=== PATIENT | female | born 1960 | race Caucasian/White ===

== ENCOUNTER 2016-10-07 07:27 | Emergency (ER) | payer OTHER ==
[2016-10-07 07:48] VITALS: BP 124/79
--- NOTE | 2016-10-07 07:53 | UC ---
Respiratory Complaint HPI - HPI Summary HPI Summary: 56 yo female with cough x 3-4 days productive at times wheezing COBOS NO CP low energy sinsus pressure and some nasal congestion no ST - History of Current Complaint Chief Complaint: UCGeneralIllness Stated Complaint: UPPER RESPIRATORY Time Seen by Provider: 10/07/16 07:40 Hx Obtained From: Patient Hx Last Menstrual Period: 2004 Onset/Duration: Gradual Onset, Lasting Days Timing: Constant Severity Initially: Mild Severity Currently: Moderate Pain Intensity: 2 Pain Scale Used: 0-10 Numeric Character: Cough: Productive - art times Aggravating Factors: Nothing Alleviating Factors: Nothing Associated Signs And Symptoms: Positive: Chills, Wheezing, Nasal Congestion - Allergies/Home Medications Allergies/Adverse Reactions: Allergies Allergy/AdvReac Type Severity Reaction Status Date / Time No Known Allergies Allergy Verified 07/27/16 09:09 PMH/Surg Hx/FS Hx/Imm Hx Previously Healthy: Yes Endocrine History Of: Reports: Thyroid Disease Denies: Diabetes Cardiovascular History Of: Denies: Cardiac Disorders, Hypertension, Pacemaker/ICD, Congestive Heart Failure, Atrial Fibrillation Respiratory History Of: Denies: COPD, Asthma, Bronchitis GI/ History Of: Reports: Renal Disease - cyst Denies: Ulcer Cancer History Of: Denies: Breast Cancer - Surgical History Surgical History: Yes Surgery Procedure, Year, and Place: thyroidectomy 2010, Partial Hysterectomy- 2004, Appendix 1981 - Family History Known Family History: Positive: Respiratory Disease - no hx asthma or COPD Negative: Cardiac Disease, Hypertension, Diabetes - Social History Alcohol Use: Occasionally Alcohol Amount: several beers Substance Use Type: None Smoking Status (MU): Never Smoked Tobacco Review of Systems Constitutional: Fatigue Skin: Negative Eyes: Negative ENT: Nasal Discharge Respiratory: Shortness Of Breath - with exertion, Cough Cardiovascular: Negative Gastrointestinal: Negative Genitourinary: Negative Motor: Negative Neurovascular: Negative Musculoskeletal: Negative Neurological: Negative Psychological: Negative All Other Systems Reviewed And Are Negative: Yes Physical Exam Triage Information Reviewed: Yes Appearance: Well-Appearing, No Pain Distress, Well-Nourished Vital Signs: Initial Vital Signs Temp 98.1 F 10/07/16 07:33 Pulse 71 10/07/16 07:33 Resp 16 10/07/16 07:33 BP 124/79 10/07/16 07:33 Pulse Ox 99 10/07/16 07:33 Vital Signs Reviewed: Yes Eyes: Positive: Conjunctiva Clear ENT: Positive: Hearing grossly normal, Pharyngeal erythema, Nasal congestion, Nasal drainage, TMs normal. Negative: Tonsillar exudate, Trismus, Muffled/ hoarse voice Dental: Negative: Dental Fracture @, Abscess @ Neck: Positive: Supple, Nontender, Other: - surgical scar Respiratory: Positive: No respiratory distress, No accessory muscle use, Wheezing - with forced expiration Cardiovascular: Positive: RRR, No Murmur, Pulses Normal Musculoskeletal: Positive: ROM Intact, No Edema Neurological: Positive: Alert, Muscle Tone Normal. Negative: Fatigued Psychological Exam: Normal Skin Exam: Normal UC Diagnostic Evaluation - Laboratory O2 Sat by Pulse Oximetry: 99 Respiratory Course/Dx - Differential Dx/Diagnosis Provider Diagnoses: acute bronchitis with bronchospasm Discharge - Discharge Plan Condition: Stable Disposition: HOME Prescriptions: Amoxicillin (*) 875 mg PO BID #20 tab Prednisone [Deltasone] 40 mg PO DAILY #10 tab Patient Education Materials: Acute Bronchitis (ED) Forms: *Work Release Referrals: Lisa Carrington MD [Primary Care Provider] - 5 Days (if not better) Additional Instructions: use inhaler as directed for about a week recheck for new or worsening symptoms
[2016-10-07] MEDS ORDERED: Albuterol HFA INHALER* 8 gm MDI INH ONE (08:13)
--- NOTE | 2016-10-07 08:29 | RAD ---
HISTORY: Cough, wheezing COMPARISONS: 07/17/2015 VIEWS: 2: Frontal dual-energy and lateral views of the chest. FINDINGS: CARDIOMEDIASTINAL SILHOUETTE: The cardiomediastinal silhouette is normal. DMITRY: The dmitry are normal. PLEURA: The costophrenic angles are sharp. No pleural abnormalities are noted. LUNG PARENCHYMA: There is faint patchy alveolar opacification in the right lower lung and infrahilar region of the cardiophrenic angle. ABDOMEN: The upper abdomen is clear. There is no subphrenic gas. BONES AND SOFT TISSUES: Degenerative changes are noted along the spine. OTHER: None. IMPRESSION: FAINT PATCHY AIRSPACE DISEASE OF THE INFRAHILAR RIGHT LOWER LUNG. RECOMMEND FOLLOW-UP TO RESOLUTION TO EXCLUDE UNDERLYING PULMONARY PARENCHYMAL PATHOLOGY
== END 2016-10-07 08:33 | disposition home or self-care (01) ==
LOC: UCCORT 07:27
DX: J20.9 Acute bronchitis, unspecified (principal); R91.8 Other nonspecific abnormal finding of lung field
CPT/HCPCS: 71020; 94640; 99212; A9270-GY; G0463

== ENCOUNTER 2016-11-11 10:42 | Emergency (ER) | payer OTHER ==
[2016-11-11 11:46] VITALS: BP 127/86
--- NOTE | 2016-11-11 13:09 | UC ---
Eye Complaint HPI - HPI Summary HPI Summary: woke up with red and goopy drainage out of right eye, itchy and feels swollen. - History of Current Complaint Chief Complaint: UCEye Stated Complaint: EYE COMPLAINT Time Seen by Provider: 11/11/16 12:56 Hx Obtained From: Patient Hx Last Menstrual Period: 2004 ?: No Onset/Duration: Sudden Onset, Lasting Hours Timing: Constant Severity Initially: Mild Severity Currently: Mild Pain Intensity: 3 Pain Scale Used: 0-10 Numeric Location of Injury: Conjunctiva, Sclera Character: Foreign Body Sensation Aggravating Factor(s): Nothing Alleviating Factor(s): Nothing Associated Signs And Symptoms: Positive: Drainage (Purulent) - Risk Factors Penetrating Injury Risk Factor: Negative Globe Rupture Risk Factors: Negative Acute Glaucoma Risk Factors: Negative - Allergies/Home Medications Allergies/Adverse Reactions: Allergies Allergy/AdvReac Type Severity Reaction Status Date / Time No Known Allergies Allergy Verified 11/11/16 11:46 PMH/Surg Hx/FS Hx/Imm Hx Previously Healthy: Yes Endocrine History Of: Reports: Thyroid Disease Denies: Diabetes Cardiovascular History Of: Denies: Cardiac Disorders, Hypertension, Pacemaker/ICD, Congestive Heart Failure, Atrial Fibrillation Respiratory History Of: Denies: COPD, Asthma, Bronchitis GI/ History Of: Reports: Renal Disease - cyst Denies: Ulcer Cancer History Of: Denies: Breast Cancer - Surgical History Surgical History: Yes Surgery Procedure, Year, and Place: thyroidectomy 2010, Partial Hysterectomy- 2004, Appendix 1981 - Family History Known Family History: Positive: Respiratory Disease - no hx asthma or COPD Negative: Cardiac Disease, Hypertension, Diabetes - Social History Alcohol Use: Occasionally Alcohol Amount: several beers Substance Use Type: None Smoking Status (MU): Never Smoked Tobacco Review of Systems Constitutional: Negative Eyes: Drainage, Eye Redness ENT: Negative Respiratory: Cough Cardiovascular: Negative Gastrointestinal: Negative Genitourinary: Negative Motor: Negative Neurovascular: Negative Musculoskeletal: Negative Neurological: Negative Psychological: Negative, Anxious All Other Systems Reviewed And Are Negative: Yes Physical Exam Triage Information Reviewed: Yes Appearance: No Pain Distress, Well-Nourished, Ill-Appearing Vital Signs: Initial Vital Signs Temp 98.3 F 11/11/16 11:39 Pulse 78 11/11/16 11:39 Resp 16 11/11/16 11:39 BP 127/86 11/11/16 11:39 Pulse Ox 99 11/11/16 11:39 Vital Signs Reviewed: Yes Eye Exam: Normal Eyes: Positive: Conjunctiva Inflamed, Discharge ENT Exam: Normal ENT: Positive: Hearing grossly normal, Pharynx normal, TMs normal Dental Exam: Normal Neck exam: Normal Neck: Positive: Supple, Nontender, No Lymphadenopathy Respiratory: Positive: Chest non-tender, No respiratory distress, No accessory muscle use, Wheezing, Inspiration, Other: - cough Cardiovascular Exam: Normal Cardiovascular: Positive: RRR, No Murmur, Pulses Normal Abdominal Exam: Normal Abdomen Description: Positive: Nontender, No Organomegaly, Soft Bowel Sounds: Positive: Present Musculoskeletal Exam: Normal Musculoskeletal: Positive: Strength Intact, ROM Intact, No Edema Neurological Exam: Normal Neurological: Positive: Alert, Muscle Tone Normal Psychological Exam: Normal Skin Exam: Normal Eye Complaint Course/Dx - Differential Dx/Diagnosis Differential Diagnosis/HQI/PQRI: Conjunctivitis Provider Diagnoses: conjunctivitis, right Discharge - Discharge Plan Condition: Stable Disposition: HOME Prescriptions: Erythromycin OPHTH.OINT* [Ilotycin OPHTH.OINT*] 1 applic RIGHT EYE TID #1 tube Patient Education Materials: Conjunctivitis (ED) Referrals: Lisa Carrington MD [Primary Care Provider] - Additional Instructions: use the medication as prescribed. Practice good hand hygiene. Change bed linen daily until the symptoms clear to prevent reinfection. Follow up with any worsening symptoms.
== END 2016-11-11 13:09 | disposition home or self-care (01) ==
LOC: UCCORT 10:42
DX: H10.31 Unspecified acute conjunctivitis, right eye (principal)
CPT/HCPCS: 99212; G0463

== ENCOUNTER 2017-07-19 12:47 | Emergency (ER) | payer OTHER ==
[2017-07-19 13:05] VITALS: BP 146/95
--- NOTE | 2017-07-19 13:13 | UC ---
Eye Complaint HPI - History of Current Complaint Chief Complaint: UCEye Stated Complaint: EYE COMPLAINT Time Seen by Provider: 07/19/17 13:12 Hx Obtained From: Patient Hx Last Menstrual Period: 2004 Onset/Duration: Gradual Onset, Lasting Days - 4 Timing: Constant Severity Initially: Mild Severity Currently: Mild Pain Intensity: 0 Pain Scale Used: 0-10 Numeric Location of Injury: Conjunctiva Associated Signs And Symptoms: Positive: Drainage (Purulent) - Risk Factors Penetrating Injury Risk Factor: Negative Globe Rupture Risk Factors: Negative Acute Glaucoma Risk Factors: Negative - Allergies/Home Medications Allergies/Adverse Reactions: Allergies Allergy/AdvReac Type Severity Reaction Status Date / Time No Known Allergies Allergy Verified 11/11/16 11:46 PMH/Surg Hx/FS Hx/Imm Hx Previously Healthy: Yes - Surgical History Surgical History: Yes Surgery Procedure, Year, and Place: thyroidectomy 2010, Partial Hysterectomy- 2004, Appendix 1981 - Family History Known Family History: Positive: Respiratory Disease - no hx asthma or COPD Negative: Cardiac Disease, Hypertension, Diabetes - Social History Alcohol Use: Occasionally Alcohol Amount: several beers Substance Use Type: None Smoking Status (MU): Never Smoked Tobacco Review of Systems Constitutional: Negative Skin: Negative Eyes: Drainage, Eye Redness ENT: Negative Respiratory: Negative Cardiovascular: Negative Gastrointestinal: Negative Genitourinary: Negative Motor: Negative Neurovascular: Negative Musculoskeletal: Negative Neurological: Negative Psychological: Negative Is Patient Immunocompromised?: No All Other Systems Reviewed And Are Negative: Yes Physical Exam Triage Information Reviewed: Yes Appearance: Well-Appearing, No Pain Distress, Well-Nourished Vital Signs: Initial Vital Signs Temp 97.2 F 07/19/17 13:00 Pulse 82 07/19/17 13:00 Resp 18 07/19/17 13:00 BP 146/95 07/19/17 13:00 Pulse Ox 99 07/19/17 13:00 Vital Signs Reviewed: Yes Eyes: Positive: Conjunctiva Inflamed - R, Discharge - R ENT: Positive: Hearing grossly normal. Negative: Nasal congestion, Nasal drainage, Trismus, Muffled/hoarse voice Neck: Positive: Supple, Nontender, No Lymphadenopathy Respiratory: Positive: Lungs clear, Normal breath sounds, No respiratory distress, No accessory muscle use Cardiovascular: Positive: RRR, No Murmur Musculoskeletal: Positive: ROM Intact, No Edema Neurological: Positive: Alert Skin Exam: Normal Eye Complaint Course/Dx - Differential Dx/Diagnosis Provider Diagnoses: conjunctivits (R) Discharge - Discharge Plan Condition: Stable Disposition: HOME Prescriptions: Polymyx/Trimethoprim OPTH* [Polytrim OPHTH*] 1 - 2 drop RIGHT EYE QID #1 btl Patient Education Materials: Conjunctivitis (ED) Referrals: Lisa Carrington MD [Primary Care Provider] - 2 Weeks (YOUR BP WAS A LITTLE HIGH HERE AND SHOULD BE RECHECKED ) Additional Instructions: RECHECK IN 4 DAYS IF NOT BETTER ZADITOR EYE DROPS (OTC)
== END 2017-07-19 13:37 | disposition home or self-care (01) ==
LOC: UCEAST 12:47
DX: H10.9 Unspecified conjunctivitis (principal)
CPT/HCPCS: 99212; G0463

== ENCOUNTER 2017-09-26 07:35 | Emergency (ER) | payer OTHER ==
[2017-09-26 07:53] VITALS: BP 143/84
--- NOTE | 2017-09-26 08:30 | UC ---
Back Pain HPI - HPI Summary HPI Summary: Pt c/o sudden on set of right side flank/back pain that began 5 days ago. Pt denies any urinary symptoms of frequency, dysuria, urgency, or hematuria. Pt denies history of kidney stones. Pt's sister and nuece have positive history of kidney stones. - History of Current Complaint Chief Complaint: UCBackPain Stated Complaint: LOWER BACK PAIN Time Seen by Provider: 09/26/17 08:08 Hx Obtained From: Patient Hx Last Menstrual Period: 2004 ?: No Onset/Duration: Sudden Onset, Lasting Days Timing: Intermittent, Lasting Minutes Severity Initially: Mild Severity Currently: Mild Character: Sharp, Dull, Aching, Spasmodic Aggravating Factor(s): Movement, Lifting, Bending Alleviating Factor(s): Rest, Position Associated Signs And Symptoms: Positive: Flank Pain - right - Risk Factors AAA Risk Factors: Negative TAD Risk Factors: Negative Cauda Equina Risk Factors: Negative Epidural Abscess Risk Factors: Negative - Allergies/Home Medications Allergies/Adverse Reactions: Allergies Allergy/AdvReac Type Severity Reaction Status Date / Time No Known Allergies Allergy Verified 09/26/17 07:46 PMH/Surg Hx/FS Hx/Imm Hx Previously Healthy: Yes - Surgical History Surgical History: Yes Surgery Procedure, Year, and Place: thyroidectomy 2010, Partial Hysterectomy- 2004, Appendix 1981 - Family History Known Family History: Positive: Respiratory Disease - no hx asthma or COPD Negative: Cardiac Disease, Hypertension, Diabetes - Social History Occupation: Employed Full-time Lives: With Family Alcohol Use: Occasionally Alcohol Amount: several beers Substance Use Type: None Smoking Status (MU): Never Smoked Tobacco Have You Smoked in the Last Year: No Review of Systems Constitutional: Negative Skin: Negative Eyes: Negative ENT: Negative Respiratory: Negative Cardiovascular: Negative Gastrointestinal: Nausea Genitourinary: Negative Motor: Negative Neurovascular: Negative Musculoskeletal: Myalgia Neurological: Negative Psychological: Negative Is Patient Immunocompromised?: No All Other Systems Reviewed And Are Negative: Yes Physical Exam Triage Information Reviewed: Yes Appearance: Pain Distress - mild Vital Signs: Initial Vital Signs Temp 97.6 F 09/26/17 07:47 Pulse 84 09/26/17 07:47 Resp 18 09/26/17 07:47 BP 143/84 09/26/17 07:47 Pulse Ox 98 09/26/17 07:47 Vital Signs Reviewed: Yes Eye Exam: Normal ENT Exam: Normal Neck exam: Normal Respiratory Exam: Normal Cardiovascular Exam: Normal Abdominal Exam: Normal Musculoskeletal Exam: Other Musculoskeletal: Positive: Other: - tenderness right flank with palpation Neurological Exam: Normal Psychological Exam: Normal Skin Exam: Normal Back Pain Course/Dx - Course Course Of Treatment: IMPRESSION: Stool is present throughout the colon. No abnormal masses or fluid collections. are noted. - Differential Dx/Diagnosis Differential Diagnosis/HQI/PQRI: Strain Provider Diagnoses: flank pain. Discharge - Discharge Plan Condition: Stable Disposition: HOME Patient Education Materials: Flank Pain (ED) Referrals: Lisa Carrington MD [Primary Care Provider] - If Needed Additional Instructions: Please follow up with your PCP or return to clinic.
--- NOTE | 2017-09-26 09:50 | RAD ---
Indication: Right flank pain. Flat plate of the abdomen demonstrates no free air. Colon is filled with stool. No free fluid is identified. Air-fluid levels are unremarkable. IMPRESSION: Stool is present throughout the colon. No abnormal masses or fluid collections are noted.
== END 2017-09-26 09:00 | disposition home or self-care (01) ==
LOC: UCCORT 07:35
DX: R10.9 Unspecified abdominal pain (principal); Z72.89 Other problems related to lifestyle
CPT/HCPCS: 74000; 81003; 99211; G0463